=== PATIENT | male | born 1960 | race Caucasian/White ===

== ENCOUNTER 2018-07-17 23:39 | Emergency (ER) | payer OTHER ==
[~2018-07-17] VITALS: Ht 167.6 cm; Wt 64.5 kg
[2018-07-17] MEDS ORDERED: ATOR20TA86 PO (23:48)
[2018-07-18] MEDS ORDERED: PERTUSS(ACELL),DIPH,TET VAC/PF 0.5 ML VIAL IM ONE (01:00)
[2018-07-18] MEDS ORDERED: IBUPROFEN 800 MG TABLET PO ONE (01:15)
[2018-07-18] MEDS ORDERED: HYDROCODONE/ACETAMINOPHEN 5-325 MG TABLET PO ONE (02:15)
[2018-07-18 04:21] VITALS: BP 141/86
== END 2018-07-18 04:25 | disposition home or self-care (01) ==
LOC: EMS 23:44
DX: S82.842A Displaced bimalleolar fracture of left lower leg, initial encounter for closed fracture (principal); S81.011A Laceration without foreign body, right knee, initial encounter; E78.00 Pure hypercholesterolemia, unspecified; V26.4XXA Motorcycle driver injured in collision with other nonmotor vehicle in traffic accident, initial encounter; Y93.89 Activity, other specified; Y92.89 Other specified places as the place of occurrence of the external cause; Y99.8 Other external cause status
CPT/HCPCS: 12001; 29515; 90471; 90715